=== PATIENT | female | born 2000 | race Caucasian/White ===

== ENCOUNTER 2019-01-06 22:56 | Emergency (ER) | payer OTHER ==
--- NOTE | 2019-01-06 23:09 | ER Report ---
History and Physical Time Seen By MD: 23:09 Hx. of Stated Complaint: nause, vomiting since yesterday. got worse this afternoon. pt reports abdominal pain as well. HPI/ROS CHIEF COMPLAINT: abdominal pain, vomiting HISTORY OF PRESENT ILLNESS: This is a 19 year old female. She has been having pain for the last 48 hours. Diffuse pain, all over the abdomen. Having some hot and cold chills. Nausea with vomiting, not eating or drinking much because of this. Having diarrhea as well. Does not think she had any bad food or water exposure. No sore throat, cough, runny nose. No chest pain. Less urination. Last period ended this week. Allergies: Coded Allergies: No Known Drug Allergies (Unverified , 01/06/19) Home Meds Active Scripts Ondansetron 4 Mg Odt (ONDANSETRON 4 MG ODT) 4 Mg Tab.rapdis, 4 MG PO Q6H PRN for NAUSEA/VOMITING, #20 TAB 0 Refills Prov:KAYLA STERLING MD 01/07/19 Hydrocodone Bit/Acetaminophen (HYDROCODON-ACETAMINOPHEN 5-325) 1 Each Tablet, 1 EACH PO Q4H PRN for PAIN, #12 TAB 0 Refills Prov:KAYLA STERLING MD 01/07/19 Reviewed Nurses Notes: Yes Constitutional Vital Sign - Last 24 Hours 01/06/19 01/06/19 01/06/19 01/06/19 22:56 23:02 23:04 23:26 Temp 97.8 Pulse ??? 100 74 Resp 22 B/P (MAP) 137/95 137/95 (109) Pulse Ox 95 98 O2 Delivery Room Air 01/06/19 01/06/19 01/07/19 01/07/19 23:30 23:56 00:00 01:00 Pulse 99 B/P (MAP) 122/78 (93) 124/99 (107) 102/57 (72) Pulse Ox 87 86 01/07/19 01/07/19 01/07/19 01:30 02:00 03:00 Pulse 82 90 95 B/P (MAP) 112/55 (74) 124/87 (99) Pulse Ox 94 85 92 Intake and Output 01/06/19 01/06/19 01/07/19 15:00 23:00 07:00 Intake Total 2000 ml Balance 2000 ml Physical Exam General Appearance: The patient is alert. No acute distress. Eyes: Pupils are equal, round. No pallor, injection or icterus. ENT: Mucous membranes are moist. Normal oral mucosa. Posterior oropharynx is normal. Neck: Supple and non tender. Respiratory: Breathing easily and unlabored. Lungs are clear to auscultation. Cardiovascular: Regular rate and rhythm. No murmurs, gallops or rubs. Gastrointestinal: Abdomen is soft, diffuse tenderness, somewhat more distinct in right lower abdomen. Nondistended. No rebound or guarding. No masses or organomegaly. Normal active bowel sounds. Neurological: Alert and oriented x3. No focal neurologic deficits Skin: Warm and dry. Musculoskeletal: Extremities are nontender. DIFFERENTIAL DIAGNOSIS: After history and physical exam, differential diagnosis was considered for abdominal pain including but not limited to enteritis, colitis, gastroenteritis, gastritis and urinary tract infection. Also consider ovarian cyst. Medical Decision Making Data Points Result Diagram: 01/06/19 2316 01/06/19 2316 Laboratory Hematology Test 01/06/19 23:16 01/07/19 02:12 Red Blood Count 6.09 M/uL (4.17-5.56) Mean Corpuscular Volume 83.6 fL (80.0-96.0) Mean Corpuscular Hemoglobin 28.2 pg (26.0-33.0) Mean Corpuscular Hemoglobin Concent 33.7 g/dL (32.0-36.0) Red Cell Distribution Width 13.3 % (11.5-14.5) Mean Platelet Volume 10.0 fL (7.2-11.1) Neutrophils (%) (Auto) 86.0 % (39.4-72.5) Lymphocytes (%) (Auto) 9.3 % (17.6-49.6) Monocytes (%) (Auto) 4.2 % (4.1-12.4) Eosinophils (%) (Auto) 0.3 % (0.4-6.7) Basophils (%) (Auto) 0.2 % (0.3-1.4) Nucleated RBC Relative Count (auto) 0.0 /100WBC Neutrophils # (Auto) 8.3 K/uL (2.0-7.4) Lymphocytes # (Auto) 0.9 K/uL (1.3-3.6) Monocytes # (Auto) 0.4 K/uL (0.3-1.0) Eosinophils # (Auto) 0.0 K/uL (0.0-0.5) Basophils # (Auto) 0.0 K/uL (0.0-0.1) Nucleated RBC Absolute Count (auto) 0.00 K/uL Sodium Level 138 mmol/L (137-145) Potassium Level 3.8 mmol/L (3.5-5.0) Chloride Level 105 mmol/L (98-107) Carbon Dioxide Level 17 mmol/L (22-31) Blood Urea Nitrogen 11 mg/dl (7-18) Creatinine 0.90 mg/dl (0.52-1.04) Glomerular Filtration Rate Calc > 60.0 Random Glucose 127 mg/dl (75-110) Calcium Level 10.2 mg/dl (8.4-10.2) Total Bilirubin 0.7 mg/dl (0.2-1.3) Aspartate Amino Transf (AST/SGOT) 26 U/L (0-35) Alanine Aminotransferase (ALT/SGPT) 28 U/L (0-56) Alkaline Phosphatase 113 U/L (0-126) Total Protein 8.7 g/dl (6.3-8.2) Albumin 5.2 g/dl (3.5-5.0) Amylase Level 43 U/L (0-110) Lipase 70 U/L (23-300) Human Chorionic Gonadotropin, Qual Negative (NEGATIVE) Urine Color Yellow Urine Clarity Clear Urine pH 5.0 pH (4.8-9.5) Urine Specific [place] S3 Urine Protein Negative mg/dL (NEGATIVE) Urine Glucose (UA) Negative mg/dL (NEGATIVE) Urine Ketones 20 mg/dL (NEGATIVE) Urine Blood Negative (NEGATIVE) Urine Nitrite Negative (NEGATIVE) Urine Bilirubin Negative (NEGATIVE) Urine Urobilinogen Negative mg/dL (0.2-1.9) Urine Leukocyte Esterase Negative (NEGATIVE) Urine RBC 1 /HPF (0-2/HPF) Urine WBC None /HPF (0-5/HPF) Urine Squamous Epithelial Cells Few /LPF (</=FEW) Urine Bacteria Negative /HPF (NONE-FEW) Urine Mucus Few /HPF (NONE-FEW) Chemistry Test 01/06/19 23:16 01/07/19 02:12 White Blood Count 9.7 k/uL (4.5-11.0) Red Blood Count 6.09 M/uL (4.17-5.56) Hemoglobin 17.1 g/dL (12.0-16.0) Hematocrit 50.9 % (34.0-47.0) Mean Corpuscular Volume 83.6 fL (80.0-96.0) Mean Corpuscular Hemoglobin 28.2 pg (26.0-33.0) Mean Corpuscular Hemoglobin Concent 33.7 g/dL (32.0-36.0) Red Cell Distribution Width 13.3 % (11.5-14.5) Platelet Count 337 K/uL (150-450) Mean Platelet Volume 10.0 fL (7.2-11.1) Neutrophils (%) (Auto) 86.0 % (39.4-72.5) Lymphocytes (%) (Auto) 9.3 % (17.6-49.6) Monocytes (%) (Auto) 4.2 % (4.1-12.4) Eosinophils (%) (Auto) 0.3 % (0.4-6.7) Basophils (%) (Auto) 0.2 % (0.3-1.4) Nucleated RBC Relative Count (auto) 0.0 /100WBC Neutrophils # (Auto) 8.3 K/uL (2.0-7.4) Lymphocytes # (Auto) 0.9 K/uL (1.3-3.6) Monocytes # (Auto) 0.4 K/uL (0.3-1.0) Eosinophils # (Auto) 0.0 K/uL (0.0-0.5) Basophils # (Auto) 0.0 K/uL (0.0-0.1) Nucleated RBC Absolute Count (auto) 0.00 K/uL Glomerular Filtration Rate Calc > 60.0 Calcium Level 10.2 mg/dl (8.4-10.2) Total Bilirubin 0.7 mg/dl (0.2-1.3) Aspartate Amino Transf (AST/SGOT) 26 U/L (0-35) Alanine Aminotransferase (ALT/SGPT) 28 U/L (0-56) Alkaline Phosphatase 113 U/L (0-126) Total Protein 8.7 g/dl (6.3-8.2) Albumin 5.2 g/dl (3.5-5.0) Amylase Level 43 U/L (0-110) Lipase 70 U/L (23-300) Human Chorionic Gonadotropin, Qual Negative (NEGATIVE) Urine Color Yellow Urine Clarity Clear Urine pH 5.0 pH (4.8-9.5) Urine Specific [place] S3 Urine Protein Negative mg/dL (NEGATIVE) Urine Glucose (UA) Negative mg/dL (NEGATIVE) Urine Ketones 20 mg/dL (NEGATIVE) Urine Blood Negative (NEGATIVE) Urine Nitrite Negative (NEGATIVE) Urine Bilirubin Negative (NEGATIVE) Urine Urobilinogen Negative mg/dL (0.2-1.9) Urine Leukocyte Esterase Negative (NEGATIVE) Urine RBC 1 /HPF (0-2/HPF) Urine WBC None /HPF (0-5/HPF) Urine Squamous Epithelial Cells Few /LPF (</=FEW) Urine Bacteria Negative /HPF (NONE-FEW) Urine Mucus Few /HPF (NONE-FEW) Urinalysis Test 01/07/19 02:12 Urine Color Yellow Urine Clarity Clear Urine pH 5.0 pH (4.8-9.5) Urine Specific [place] S3 Urine Protein Negative mg/dL (NEGATIVE) Urine Glucose (UA) Negative mg/dL (NEGATIVE) Urine Ketones 20 mg/dL (NEGATIVE) Urine Blood Negative (NEGATIVE) Urine Nitrite Negative (NEGATIVE) Urine Bilirubin Negative (NEGATIVE) Urine Urobilinogen Negative mg/dL (0.2-1.9) Urine Leukocyte Esterase Negative (NEGATIVE) Urine RBC 1 /HPF (0-2/HPF) Urine WBC None /HPF (0-5/HPF) Urine Squamous Epithelial Cells Few /LPF (</=FEW) Urine Bacteria Negative /HPF (NONE-FEW) Urine Mucus Few /HPF (NONE-FEW) EKG/Imaging Imaging EXAMINATION: CT abdomen with IV contrast CT pelvis with IV contrast HISTORY: Abdominal pain, nausea, vomiting and diarrhea. COMPARISON: None. TECHNIQUE: Axial images were taken through the abdomen and pelvis with intravenous contrast. Sagittal and coronal reformatted images are also submitted. CONTRAST: 75 mL of IV Isovue-370. One of the following dose optimization techniques was utilized in the performance of this exam: Automated exposure control; adjustment of the mA and/or kV according to the patient's size; or use of an iterative reconstruction technique. Specific details can be referenced in the facility's radiology CT exam operational policy. FINDINGS: Liver/biliary: Negative. Pancreas: Negative. Spleen: Negative. Adrenal glands: Negative. Kidneys: Negative. Pelvic structures: There is a 6.4 x 4.8 cm simple appearing right adnexal cyst, posterior to the uterus. Bowel: Bowel loops are normal in caliber. There is a normal caliber, thin-walled appendix inferior to the cecum. Peritoneum/retroperitoneum/mesenteries: Negative. Vessels: Negative. Musculoskeletal/body wall: Negative. Lymph nodes: Negative. Lower chest: Negative. IMPRESSION: 6.4 x 4.8 cm simple appearing right adnexal cyst is likely an ovarian cyst. Further evaluation is recommended with pelvic ultrasound. These findings were discussed with KAYLA STERLING at 01/07/2019 1:09 AM. Report Dictated By: Perla Magaña MD at 01/07/2019 1:04 AM Ultrasound of the pelvis: Indication: Evaluate ovarian cyst. Technique: Transvaginal imaging, with Doppler. Comparison: CT scan from earlier the same day. Uterus: Normal in size, shape, and echogenicity, measuring 6.3 x 3.5 x 3.0 cm. There is no evidence of mass, calcification, or fluid. The endometrial stripe measures 9 mm. Right ovary/adnexa: The right ovary measures 6.4 x 5.4 x 4.6 cm. A well- circumscribed simple cyst is present, measuring 6.1 x 5.0 x 4.1 cm. Focused Do ppler evaluation of the right ovarian parenchyma was technically suboptimal. Color Doppler images of the area suggest preservation of flow. There is no evidence of fluid in the right adnexal region. Left ovary/adnexa: The left ovary measures 3.1 x 1.9 x 1.3 cm. A few tiny follicles are present. Doppler images demonstrate normal flow signals. There are no signs of torsion. Free fluid: None seen. IMPRESSION: There is a simple cyst in the right ovary, measuring up to 6.1 size. Focused Doppler evaluation of the right ovarian parenchyma was technically suboptimal, and torsion cannot be excluded. Additional clinical correlation is advised. Report Dictated By: Nicho Roman MD at 01/07/2019 2:59 AM ED Course/Re-evaluation Clinical Indication for ER IV: Hydration, IV Access ED Course Zofran, morphine, and IV fluids given. Labs unremarkable. CT scan shows large right ovarian cyst that looks like a simple cyst. Ultrasound follow-up was done, after discussion with the patient. She was questioning whether she needed this. Discussed risk of torsion. Ultrasound showed limited blood flow, cannot entirely rule out torsion but based on pain levels, this does not seem to be the case right now. Discussed signs and symptoms to watch for and return to the ER as needed. Provided some Lortab and Zofran for pain and nausea control. Discussed the case with Dr. Mayes, [employer] [facility] director transportation. Decision to Disposition Date: Jan 07, 2019 Decision to Disposition Time: 03:36 Depart Departure Latest Vital Signs Vital Signs Date Time Temp Pulse Resp B/P (MAP) Pulse Ox O2 Delivery O2 Flow Rate FiO2 01/07/19 03:00 95 92 01/07/19 02:00 124/87 (99) 01/06/19 23:02 97.8 22 Room Air Impression: Primary Impression: Ovarian cyst Additional Impression: Enteritis Condition: Improved Disposition: HOME OR SELF-CARE New Scripts Ondansetron 4 Mg Odt (ONDANSETRON 4 MG ODT) 4 Mg Tab.rapdis 4 MG PO Q6H PRN for NAUSEA/VOMITING, #20 TAB 0 Refills Prov: KAYLA STERLING MD 01/07/19 Hydrocodone Bit/Acetaminophen (HYDROCODON-ACETAMINOPHEN 5-325) 1 Each Tablet 1 EACH PO Q4H PRN for PAIN, #12 TAB 0 Refills Prov: KAYLA STERLING MD 01/07/19 Patient Instructions: Enteritis (ED), Ovarian Cyst (ED) Additional Instructions: Watch for sudden worsening of pain in the right lower abdomen. This could represent a ruptured ovarian cyst, but could also represent a twisting of the ovary with cutting off of the blood supply, called an ovarian torsion.. Ovarian torsion is a surgical emergency. If you have worsening pain, we would repeat the ultrasound to determine the cause. Follow-up with [facility] this coming week. Dr. Mayes would be happy to have you seen in their office by herself or her partner, Dr. Blanca. Problem Qualifiers Primary Impression: Ovarian cyst Laterality: right Qualified Codes: N83.201 - Unspecified ovarian cyst, right side KAYLA STERLING MD Jan 06, 2019 23:09
[2019-01-06] MEDS ORDERED: NS(*) 0.9% 1000 ML BAG 1,000 ML IV ONE (23:37)
[2019-01-06] MEDS ORDERED: ONDANSETRON 4 MG/2 ML VIAL IVP ONE (23:40)
[2019-01-06] MEDS ORDERED: MORPHINE 4 MG/ML SDV IVP ONE (23:45)
[2019-01-06 23:55] LABS: PLATELET COUNT, AUTOMATED 337 K/uL (150-450)
[2019-01-07] MEDS ORDERED: IOPAMIDOL 61% 75 ML INFUS BTL 75 ML ONE (00:06)
--- NOTE | 2019-01-07 01:15 | RADIOLOGY IMAGING REPORT ---
FACILITY: [facility] - [place], [place] PATIENT NAME: Inocencia Lloyd : 2000 MR: [id number] V: [id number] EXAM DATE: ORDERING PHYSICIAN: KAYLA STERLING TECHNOLOGIST: Location: [facility] Patient: Inocencia Lloyd : 2000 Visit/Account:[id number] Date of Sevice: 01/06/2019 EXAMINATION: CT abdomen with IV contrast CT pelvis with IV contrast HISTORY: Abdominal pain, nausea, vomiting and diarrhea. COMPARISON: None. TECHNIQUE: Axial images were taken through the abdomen and pelvis with intravenous contrast. Sagitt al and coronal reformatted images are also submitted. CONTRAST: 75 mL of IV Isovue-370. One of the following dose optimization techniques was utilized in the performance of this exam: Autom ated exposure control; adjustment of the mA and/or kV according to the patient's size; or use of an i terative reconstruction technique. Specific details can be referenced in the facility's radiology C T exam operational policy. FINDINGS: Liver/biliary: Negative. Pancreas: Negative. Spleen: Negative. Adrenal glands: Negative. Kidneys: Negative. Pelvic structures: There is a 6.4 x 4.8 cm simple appearing right adnexal cyst, posterior to the u terus. Bowel: Bowel loops are normal in caliber. There is a normal caliber, thin-walled appendix inferior to the cecum. Peritoneum/retroperitoneum/mesenteries: Negative. Vessels: Negative. Musculoskeletal/body wall: Negative. Lymph nodes: Negative. Lower chest: Negative. IMPRESSION: 6.4 x 4.8 cm simple appearing right adnexal cyst is likely an ovarian cyst. Further evaluation is rec ommended with pelvic ultrasound. These findings were discussed with KAYLA STERLING at 01/07/2019 1:09 AM. Report Dictated By: Perla Magaña MD at 01/07/2019 1:04 AM Report E-Signed By: Perla Magaña MD at 01/07/2019 1:10 AM WSN:[id number]
[2019-01-07 02:00] VITALS: BP 124/87
[2019-01-07] MEDS ORDERED: NS(*) 0.9% 1000 ML BAG 1,000 ML IV ONE (02:10)
--- NOTE | 2019-01-07 03:21 | RADIOLOGY IMAGING REPORT ---
[place] [facility] [place] Inocencia Lloyd : 2000 MR: [id number] V: [id number] EXAM DATE: [id number] ORDERING PHYSICIAN: KAYLA STERLING TECHNOLOGIST: Location: [facility] - [place] Patient: Inocencia Lloyd : 2000 Visit/Account:[id number] Date of Sevice: 01/07/2019 Ultrasound of the pelvis: Indication: Evaluate ovarian cyst. Technique: Transvaginal imaging, with Doppler. Comparison: CT scan from earlier the same day. Uterus: Normal in size, shape, and echogenicity, measuring 6.3 x 3.5 x 3.0 cm. There is no evidence o f mass, calcification, or fluid. The endometrial stripe measures 9 mm. Right ovary/adnexa: The right ovary measures 6.4 x 5.4 x 4.6 cm. A well-circumscribed simple cyst is present, measuring 6.1 x 5.0 x 4.1 cm. Focused Doppler evaluation of the right ovarian parenchyma was technically suboptimal. Color Doppler images of the area suggest preservation of flow. There is no e vidence of fluid in the right adnexal region. Left ovary/adnexa: The left ovary measures 3.1 x 1.9 x 1.3 cm. A few tiny follicles are present. Dopp ler images demonstrate normal flow signals. There are no signs of torsion. Free fluid: None seen. IMPRESSION: There is a simple cyst in the right ovary, measuring up to 6.1 size. Focused Doppler eval uation of the right ovarian parenchyma was technically suboptimal, and torsion cannot be excluded. Ad ditional clinical correlation is advised. Report Dictated By: Nicho Roman MD at 01/07/2019 2:59 AM Report E-Signed By: Nicho Roman MD at 01/07/2019 3:08 AM WSN:[id number]
[2019-01-07] MEDS ORDERED: ACET/HYDROC 5/325MG TH ER ONLY 2 TAB/BOTTLE PO ONE (03:35)
[2019-01-07] MEDS ORDERED: ONDANSETRON 4 MG ODT TH SL ONE (03:35)
[2019-01-07] MEDS ORDERED: ONDA4TAB9 PO (03:39)
[2019-01-07] MEDS ORDERED: LOR5/325 PO (03:39)
== END 2019-01-07 03:51 | disposition home or self-care (01) ==
LOC: ER 23:01
DX: N83.201 Unspecified ovarian cyst, right side (principal); K52.9 Noninfective gastroenteritis and colitis, unspecified
CPT/HCPCS: 74177; 76830; 81001; 82150; 83690; 84703; 85025; 96361; 96374; 96375; 99284; J2270; J2405; J7030; S0119; 82040; 82247; 82310; 82374; 82435; 82565; 82947; 84075; 84132; 84155; 84295; 84450; 84460; 84520; Q9967

== ENCOUNTER → 2019-03-06 | Outpatient (CLI) | payer OTHER ==
[~2019-03-06] MED LIST: LOR5/325 PO; NORG1TAB75 PO; ONDA4TAB9 PO
--- NOTE | 2019-03-06 11:05 | RADIOLOGY IMAGING REPORT ---
FACILITY: [facility] PATIENT NAME: Inocencia Lloyd : 2000 MR: [id number] V: [id number] EXAM DATE: [id number] ORDERING PHYSICIAN: MK KINGSTON TECHNOLOGIST: Location: [facility] [place] Patient: Inocencia Lloyd : 2000 Visit/Account:[id number] Date of Sevice: 03/06/2019 EXAMINATION: Ultrasound pelvis transvaginal with Doppler evaluation HISTORY: Follow-up right ovarian cyst. LMP 02/20/2019. COMPARISON: Pelvic ultrasound from 01/07/2019. FINDINGS: Uterus: Anteverted; 7.2 cm length x 4.6 cm transverse x 2.8 cm AP. Myometrium: Negative. Endometrium: 4 mm in greatest double thickness. Homogeneous without focal lesion. Cervix: Negative. Ovaries: Right ovary 3.7 x 1.6 x 1.7 cm, left ovary 3.2 x 2.1 x 1.7 cm. 6.1 cm simple right ovarian cyst has resolved. Blood flow is documented in each ovary by Doppler ultrasound. Normal Doppler arterial and venous wav eforms to both ovaries. Adnexa: Negative. Free pelvic fluid: None. IMPRESSION: Normal pelvic ultrasound. 6.1 cm right ovarian cyst has resolved. Report Dictated By: Perla Magaña MD at 03/06/2019 10:53 AM Report E-Signed By: Perla Magaña MD at 03/06/2019 11:01 AM WSN:[id number]
== END ==
LOC: RAD 08:09
PROVIDERS: ATTEND Obstetrics & Gynecology
DX: N83.201 Unspecified ovarian cyst, right side (principal)